=== PATIENT | male | born 1960 | race Two or more races ===

== ENCOUNTER 2020-08-08 06:13 | Day surgery (SDC) | payer OTHER ==
[~2020-08-08 06:13] MED LIST: AMLODIPINE BESY10 MG PO; AVAPRO150 MG PO; CARDURA1 MG PO
== END 2020-08-08 14:23 | disposition home or self-care (01) ==
LOC: CIR.AMB 06:13
PROVIDERS: ATTEND Orthopaedic Surgery
DX: S52.122A Displaced fracture of head of left radius, initial encounter for closed fracture (principal); S52.042A Displaced fracture of coronoid process of left ulna, initial encounter for closed fracture; S53.32XA Traumatic rupture of left ulnar collateral ligament, initial encounter; Z20.822 Contact with and (suspected) exposure to COVID-19
CPT/HCPCS: 24666; 24343; 24685; C1776

== ENCOUNTER 2021-01-02 08:06 | Day surgery (SDC) | payer OTHER ==
[~2021-01-02 08:06] MED LIST changes: +FAMOTID PO
== END 2021-01-02 17:30 | disposition home or self-care (01) ==
LOC: CIR.AMB 08:06
PROVIDERS: ATTEND Orthopaedic Surgery
DX: S53.32XA Traumatic rupture of left ulnar collateral ligament, initial encounter (principal); T84.84XA Pain due to internal orthopedic prosthetic devices, implants and grafts, initial encounter; M01.X22 Direct infection of left elbow in infectious and parasitic diseases classified elsewhere; Z20.822 Contact with and (suspected) exposure to COVID-19